=== PATIENT | male | born 1990 | race African-American/Black ===

== ENCOUNTER 2024-01-15 20:33 | Emergency (ER) | payer BC ==
[2024-01-15] MEDS: Diphtheria,Pertussis(Acell),Tetanus Vaccine 0.5 ML Syringe IM ONE (20:56)
[2024-01-15] MEDS: Lidocaine 1% 5 ML VIAL INJECT ONE (20:57)
[2024-01-15] MEDS: Cephalexin 500 MG Cap PO ONE (22:19)
== END 2024-01-15 22:40 | disposition home or self-care (01) ==
LOC: MW.ED 20:33
DX: S81.011A Laceration without foreign body, right knee, initial encounter (principal); Z23 Encounter for immunization; Z75.8 Other problems related to medical facilities and other health care; W26.0XXA Contact with knife, initial encounter
CPT/HCPCS: 12002; 90471; 90715; 99282; A9270; 99283; J3490

== ENCOUNTER 2024-01-22 10:59 | Emergency (ER) | payer BC | END 2024-01-22 11:44 | disposition left against medical advice (07) | LOC: MW.ED 10:59 | DX: S81.011D Laceration without foreign body, right knee, subsequent encounter (principal); Z48.02 Encounter for removal of sutures | CPT/HCPCS: 99281 ==